=== PATIENT | male | born 1995 | race Asian ===

== ENCOUNTER 2020-02-25 08:20 | Emergency (ER) | payer OTHER ==
[~2020-02-25] VITALS: Ht 167.6 cm; Wt 56.7 kg
[2020-02-25] MEDS ORDERED: PROMETHAZINE HCL 25 MG/ML 1ML IV ONE (09:15)
[2020-02-25] MEDS ORDERED: SODIUM CHLORIDE 0.9% 1,000 ML IV ONE (09:15)
[2020-02-25 09:22] LABS: Basophils # (auto) 0 10 ^3/uL (0-0.2); Eosinophils # (auto) 0 10 ^3/uL (0-0.8); Eosinophils % (auto) 0.1 % (0.0-7.0); Hemoglobin 17.1 g/dL (13.5-17.5); Lymphocytes # (auto) 1.2 10 ^3/uL (0.4-5.4); Lymphocytes % (auto) 18.9 % (10.0-50.0); Mean Corpuscular Hemoglobin 28.6 pg (28.0-32.0); Mean Corpuscular Hgb Conc. 33.6 g/dL (32.0-36.0); Mean Corpuscular Volume 85.2 fL (80.0-100.0); Monocytes # (auto) 0.8 10 ^3/uL (0-1.3); Monocytes % (auto) 11.9 % (0.0-12.0); Neutrophils # (auto) 4.6 10 ^3/uL (1.6-8.6); Neutrophils % (auto) 69.1 % (37.0-80.0); Nucleated Red Blood Cells % 0.6 %; Platelet Count (auto) 389 10^3/uL (140-450); Red Blood Cells 5.98 10^6/uL (4.5-5.90); Red Cell Distribution Width 13.2 % (11.8-14.3); White Blood Cell 6.6 10^3/uL (4.4-10.8)
[2020-02-25 09:35] LABS: Albumin 4.3 g/dL (3.4-5.0); Potassium 3.9 mmol/L (3.5-5.1)
[2020-02-25] MEDS ORDERED: IOHEXOL 300 MG/ML 100ML BOTTLE IJ ONE (09:36)
[2020-02-25 09:41] LABS: BUN/Creatinine Ratio 18.6; Bilirubin, Total 0.4 mg/dL (0.2-1.0); Calcium 9.5 mg/dL (8.5-10.1); Total Protein 9.7 g/dL (6.4-8.2)
[2020-02-25 13:37] VITALS: BP 128/68
== END 2020-02-25 13:38 | disposition home or self-care (01) ==
LOC: ER 08:20
DX: R11.2 Nausea with vomiting, unspecified (principal)
CPT/HCPCS: 36415; 70470; 71045; 80053; 85025; 96361; 96374; 99285; J2550; J7030; Q9967

== ENCOUNTER 2020-11-01 15:16 | Inpatient (IN) | payer OTHER ==
[~2020-11-01] VITALS: Ht 167.6 cm; Wt 56.0 kg
[2020-11-01] MEDS ORDERED: SODIUM CHLORIDE 0.9% 1,000 ML IV ONE (15:30)
[2020-11-01] MEDS ORDERED: PANTOPRAZOLE 40 MG/10 ML VIAL INJ IV ONE (15:30)
[2020-11-01] MEDS ORDERED: ONDANSETRON HCL 4 MG/2 ML VIAL IV ONE (15:30)
[2020-11-01 16:13] LABS: Basophils # (auto) 0 10 ^3/uL (0-0.2); Basophils % (auto) 0.2 % (0.0-2.0); Eosinophils # (auto) 0 10 ^3/uL (0-0.8); Eosinophils % (auto) 0.2 % (0.0-7.0); Mean Corpuscular Volume 84.8 fL (80.0-100.0)
[2020-11-01 16:15] LABS: Hematocrit 46.6 % (41.0-53.0); Hemoglobin 16.2 g/dL (13.5-17.5); Lymphocytes # (auto) 2.1 10 ^3/uL (0.4-5.4); Lymphocytes % (auto) 24.5 % (10.0-50.0); Mean Corpuscular Hemoglobin 29.5 pg (28.0-32.0); Mean Corpuscular Hgb Conc. 34.8 g/dL (32.0-36.0); Monocytes # (auto) 0.7 10 ^3/uL (0-1.3); Monocytes % (auto) 8.8 % (0.0-12.0); Neutrophils # (auto) 5.6 10 ^3/uL (1.6-8.6); Neutrophils % (auto) 66.3 % (37.0-80.0); Nucleated Red Blood Cells % 0.1 %; Red Blood Cells 5.49 10^6/uL (4.5-5.90); Red Cell Distribution Width 13.6 % (11.8-14.3); White Blood Cell 8.5 10^3/uL (4.4-10.8)
[2020-11-01 16:21] LABS: Albumin 4.5 g/dL (3.4-5.0); BUN/Creatinine Ratio 19.1; Calcium 9.4 mg/dL (8.5-10.1)
[2020-11-01 16:24] LABS: Bilirubin, Total 0.6 mg/dL (0.2-1.0); Total Protein 9.5 g/dL (6.4-8.2)
[2020-11-01] MEDS ORDERED: ONDA-155 PO (17:36)
[2020-11-01] MEDS ORDERED: PREG200C59 PO (17:36)
[2020-11-01] MEDS ORDERED: IBUP600T28 PO (17:36)
[2020-11-01] MEDS ORDERED: SODIUM CHLORIDE 0.9% 2,000 ML IV ONE (17:45)
[2020-11-01] MEDS ORDERED: MORPHINE SULFATE INJECTION 2 MG/ML SYRG IV PRN ×3 (17:45→19:00)
[2020-11-01] MEDS ORDERED: NITROGLYCERIN 0.4 MG SL TAB SL PRN ×2 (17:45→19:00)
[2020-11-01] MEDS ORDERED: ACETAMINOPHEN 325 MG TAB PO PRN (19:00)
[2020-11-01] MEDS ORDERED: HYDROcodone-ACET 5/325MG TAB PO PRN (19:00)
[2020-11-01] MEDS ORDERED: LORazepam 0.5 MG TAB PO PRN (19:00)
[2020-11-01] MEDS ORDERED: ENOXAPARIN SOD 40 MG/0.4 ML SYRINGE SC ONE (19:00)
[2020-11-01] MEDS ORDERED: ALUM & MAG HYDROX-SIMETH LIQ(MAALOX) 30 ML PO PRN (19:00)
[2020-11-01] MEDS ORDERED: DOCUSATE SOD 100 MG CAP PO PRN (19:00)
[2020-11-01 19:58] LABS: Magnesium 2.6 mg/dL (1.6-2.6)
[2020-11-01 20:01] LABS: Cholesterol 265 mg/dL (< 200); HDL Cholesterol 45 mg/dL (40-59); LDL Cholesterol 185 mg/dL (< 100); Triglycerides 97 mg/dL (< 150)
[2020-11-01] MEDS: D5W 5% 1,000 ML IV SCH (20:53)
[2020-11-01] MEDS: METOCLOPRAMIDE HCL 5MG/ml INJ 2ml VIAL IV PRN (22:11)
[2020-11-01] MEDS: PREGABALIN CAPSULE 75 MG CAP PO SCH (22:52)
[2020-11-01 23:39] LABS: Urine Bacteria NONE SEEN /hpf (None Seen); Urine Blood Negative /uL (Negative); Urine Specific Gravity 1.029 (1.001-1.035); Urine WBC 2 /hpf (0 - 3)
[2020-11-02 00:51] LABS: Alcohol, Urine < 3.0 mg/dL (0-10); Amphetamine Screen, Urine NEGATIVE (NEGATIVE); Barbiturate Scree,Urine NEGATIVE (NEGATIVE); Benzodiazephine Screen, Urine NEGATIVE (NEGATIVE); Cannabinoid Screen, Urine NEGATIVE (NEGATIVE); Cocaine Screen, Urine NEGATIVE (NEGATIVE); Opiate Scree,Urine NEGATIVE (NEGATIVE); Phencyclidine Screen, Urine NEGATIVE (NEGATIVE)
[2020-11-02] MEDS ORDERED: PANTOPRAZOLE 40 MG/10 ML VIAL INJ IV SCH (10:00)
[2020-11-02] MEDS: PREGABALIN CAPSULE 75 MG CAP PO SCH ×2 (10:13→21:34)
[2020-11-02] MEDS: D5W 5% 1,000 ML IV SCH (10:14)
[2020-11-02] MEDS: ENOXAPARIN SOD 40 MG/0.4 ML SYRINGE SC SCH (10:14)
[2020-11-02] MEDS: METOCLOPRAMIDE HCL 5MG/ml INJ 2ml VIAL IV PRN ×2 (10:16→16:32)
[2020-11-02] MEDS: D5W/SOD CHL 0.45% 1,000 ML IV SCH (11:24)
[2020-11-02] MEDS ORDERED: LIDOCAINE VISCOUS 2% 15ML UD ONE (11:42)
[2020-11-02] MEDS ORDERED: diphenhdrAMINE HCL 50 MG/1 ML VL ONE (11:42)
[2020-11-02] MEDS ORDERED: SODIUM CHLORIDE LOCK 10 ML ONE (11:42)
[2020-11-02 14:49] LABS: INR 1.13 (0.9-1.15); Partial Thromboplastin Time 30.1 sec (23.6-33.0)
[2020-11-02] MEDS: MIDAZOLAM HCL 5 MG/ML-1ML VIAL ONE ×2 (15:05→15:08)
[2020-11-02] MEDS: fentaNYL CITRATE 100 MCG/2 ML VL ONE ×2 (15:05→15:08)
[2020-11-02] MEDS ORDERED: ceFAZolin 1GM/50ML 50 ML IV ONE (15:18)
[2020-11-02] MEDS: SUCRALFATE 1 GM/10 ML ORAL SUSP PO SCH ×2 (16:32→21:34)
[2020-11-02 16:57] VITALS: BP 116/79
[2020-11-02] MEDS: PANTOPRAZOLE 40 MG/10 ML VIAL INJ IV SCH (21:34)
[2020-11-02 22:00] VITALS: BP 123/62
[2020-11-03 05:00] VITALS: BP 114/61
[2020-11-03] MEDS: SUCRALFATE 1 GM/10 ML ORAL SUSP PO SCH ×2 (06:01→11:29)
[2020-11-03] MEDS: D5W/SOD CHL 0.45% 1,000 ML IV SCH (08:36)
[2020-11-03] MEDS: PREGABALIN CAPSULE 75 MG CAP PO SCH (08:37)
[2020-11-03] MEDS: ENOXAPARIN SOD 40 MG/0.4 ML SYRINGE SC SCH (08:37)
[2020-11-03] MEDS: PANTOPRAZOLE 40 MG/10 ML VIAL INJ IV SCH (08:37)
[2020-11-03 09:00] VITALS: BP 121/69
[2020-11-03] MEDS ORDERED: PANT40TA2 PO (12:28)
[2020-11-03] MEDS ORDERED: SUCR1SUS10 PO (12:29)
[2020-11-03] MEDS ORDERED: METO5TAB67 PO (12:30)
[2020-11-03 13:00] VITALS: BP 122/78
== END 2020-11-03 15:30 | disposition home or self-care (01) | DRG 381 ==
LOC: ER 15:16 → OVERFLOW 17:36 → WEST WING 11-02 09:00
PROVIDERS: ADMIT Hospitalist; ATTEND Internal Medicine Nephrology
PROC: 0DB98ZX Excision of Duodenum, Via Natural or Artificial Opening Endoscopic, Diagnostic (ICD-10-PCS; 2020-11-02)
PROC: 0DB68ZX Excision of Stomach, Via Natural or Artificial Opening Endoscopic, Diagnostic (ICD-10-PCS; 2020-11-02)
PROC: 0DB58ZX Excision of Esophagus, Via Natural or Artificial Opening Endoscopic, Diagnostic (ICD-10-PCS; 2020-11-02)
PROC: 0DP68UZ Removal of Feeding Device from Stomach, Via Natural or Artificial Opening Endoscopic (ICD-10-PCS; principal; 2020-11-02 15:09)
DX: K22.10 Ulcer of esophagus without bleeding (principal); N17.9 Acute kidney failure, unspecified; R64 Cachexia; Z68.1 Body mass index [BMI] 19.9 or less, adult; K29.70 Gastritis, unspecified, without bleeding; E86.0 Dehydration; R62.7 Adult failure to thrive; K21.9 Gastro-esophageal reflux disease without esophagitis; G89.4 Chronic pain syndrome; D47.3 Essential (hemorrhagic) thrombocythemia; N18.9 Chronic kidney disease, unspecified; Z20.822 Contact with and (suspected) exposure to COVID-19; E78.5 Hyperlipidemia, unspecified; Z93.1 Gastrostomy status; Z92.3 Personal history of irradiation
CPT/HCPCS: 36415; 43239; 43247; 71045; 74176; 80053; 80061; 80307; 81001; 82306; 82962; 83036; 83690; 83735; 84100; 84443; 84484; 85025; 85610; 85730; 86850; 86900; 86901; 87040; 87081; 87086; 87426; 93005; 96361; 96372; 96374; 96375; C9113; G0378; J0690; J2250; J2405